=== PATIENT | female | born 1940 | race Caucasian/White ===

== ENCOUNTER 2021-04-21 15:48 | Inpatient (IN) | payer MEDICARE ==
[~2021-04-21] VITALS: Ht 165.1 cm; Wt 48.1 kg
--- NOTE | 2021-04-21 15:50 | NUR ---
BIB EMS FROM HOME, FALL ON TO LEFT HIP AFTER FEELING DIZZY. DENIES LOC AND DENIES HITTING HER HEAD. C/O LEFT HIP PAIN.
[2021-04-21] MEDS ORDERED: MORPHINE SULFATE 4 MG/ML, 1ML ONE ×3 (15:59→19:48)
[2021-04-21] MEDS ORDERED: SODIUM CHLORIDE FLUSH 10ML SYR IVF ONE (16:00)
[2021-04-21] MEDS: MORPHINE SULFATE 4 MG/ML, 1ML IVPush PRN ×2 (16:01→16:37)
--- NOTE | 2021-04-21 16:03 | NUR ---
PT MED NOTED FOR PAIN, 02 20NC PLACED. PT TO RADIOLOGY WITH TECH TRANSPORT
--- NOTE | 2021-04-21 16:26 | NUR ---
PT RTD FROM RADIOLOGY, ALL MONITORS IN PLACE. PAIN CONTINUES 03/11. PTS AT BEDSIDE.
[2021-04-21] MEDS ORDERED: PLEASE ENTER ALLERGIES MC SCH (16:30)
[2021-04-21] MEDS ORDERED: PLEASE ENTER HEIGHT AND WEIGHT MC SCH (16:30)
[2021-04-21 16:51] LABS: BASOPHILS % (AUTO) 1 % (0-1); EOSINOPHILS % (AUTO) 1 % (1-7); LYMPHOCYTES % (AUTO) 14 % (22-44); MEAN CORPUSCULAR HEMOGLOBIN 29.5 pg (27.0-34.8); MEAN PLATELET VOLUME 8.9 fL (7.4-10.4); MONOCYTES % (AUTO) 3 % (2-9); NEUTROPHILS % (AUTO) 81 % (42-75); PLATELET COUNT 207 x10^3/uL (130-400); RED CELL DISTRIBUTION WIDTH 15.5 % (9.6-15.2)
[2021-04-21 16:56] LABS: INTERNATIONAL NORMALIZED RATIO 1.81 (0.93-1.1); PROTHROMBIN TIME 18.8 Seconds (9.6-11.5)
[2021-04-21 16:58] LABS: ALANINE AMINOTRANSFERASE 10 U/L (12-78); ALBUMIN 3.7 g/dL (3.4-5.0); ANION GAP 7 mmol/L (5-15); CALCIUM 9.2 mg/dL (8.5-10.1); CHLORIDE 108 mmol/L (98-107)
[2021-04-21 17:02] LABS: ALKALINE PHOSPHATASE 73 U/L (45-117); BILIRUBIN,TOTAL 0.7 mg/dL (0.2-1.0); CREATININE 1.66 mg/dL (0.55-1.02); TROPONIN I < 0.015 ng/mL (0.000-0.045)
--- NOTE | 2021-04-21 17:14 | NUR ---
TEST RESULTED, CHART UP FOR RECHECK. PT APPEARS MORE COMFORTABLE, 02/08
[2021-04-21] MEDS ORDERED: CARB1TAB43 PO (18:29)
[2021-04-21] MEDS ORDERED: SOTA80TA8 PO (18:29)
[2021-04-21] MEDS ORDERED: LISI-167 PO (18:29)
[2021-04-21] MEDS ORDERED: LEVO50TA PO (18:29)
[2021-04-21] MEDS ORDERED: [UNRECOGNIZED DRUG - OTHER] PO (18:29)
[2021-04-21] MEDS ORDERED: ATOR-2 PO (18:29)
--- NOTE | 2021-04-21 19:00 | NUR ---
BLANCAAR RPT TO ISHAN FREEMAN
[2021-04-21] MEDS ORDERED: morphine SULFATE 10 MG/ML, 1ML IVPush ONE (20:00)
--- NOTE | 2021-04-21 20:50 | NUR ---
ATTEMPTED TO CALL REPORT 1 TIME TO [place]. RN UNABLE TO TAKE REPORT AT THIS TIME
[2021-04-21] MEDS ORDERED: LACTATED RINGERS 1,000 ML IV SCH (21:30)
[2021-04-21] MEDS ORDERED: POLYETHYLENE GLYCOL 17 GM PACKET PO PRN (21:30)
[2021-04-21] MEDS ORDERED: ONDANSETRON 2MG/ML, 2ML IVPush PRN (21:30)
[2021-04-21] MEDS ORDERED: OXYcodone IR 5MG TABLET PO PRN (21:30)
[2021-04-21] MEDS ORDERED: LABETALOL 5MG/ML, 20ML IVPush PRN (21:30)
[2021-04-21 21:48] VITALS: BP 184/100
[2021-04-21] MEDS: HYDROmorphone 2 MG/ML, 1ML IVPush PRN (21:57)
[2021-04-21 22:15] VITALS: BP 156/81
[2021-04-22] MEDS: MELATONIN 5 MG TABLET PO PRN (01:29)
[2021-04-22 02:15] VITALS: BP 150/73
[2021-04-22 06:36] LABS: BASOPHILS % (AUTO) 0 % (0-1); EOSINOPHILS % (AUTO) 0 % (1-7); LYMPHOCYTES % (AUTO) 8 % (22-44); MEAN CORPUSCULAR HEMOGLOBIN 29.7 pg (27.0-34.8); MEAN CORPUSCULAR HGB CONC 33.8 g/dL (32.4-35.8); MEAN PLATELET VOLUME 8.8 fL (7.4-10.4); MONOCYTES % (AUTO) 7 % (2-9); NEUTROPHILS % (AUTO) 85 % (42-75); PLATELET COUNT 184 x10^3/uL (130-400); RED BLOOD COUNT 4.09 x10^6/uL (3.82-5.3); RED CELL DISTRIBUTION WIDTH 15.3 % (9.6-15.2)
[2021-04-22 06:46] LABS: CALCIUM 8.4 mg/dL (8.5-10.1); CHLORIDE 107 mmol/L (98-107)
[2021-04-22 06:50] LABS: ANION GAP 4 mmol/L (5-15); CREATININE 1.48 mg/dL (0.55-1.02)
[2021-04-22] MEDS ORDERED: PHYTONADIONE 10 MG/ML, 1ML SQ ONE (08:00)
[2021-04-22 09:15] VITALS: BP 151/65
[2021-04-22 11:45] LABS: INTERNATIONAL NORMALIZED RATIO 2.33 (0.93-1.1); PROTHROMBIN TIME 23.9 Seconds (9.6-11.5)
[2021-04-22 12:06] VITALS: BP 134/67
[2021-04-22] MEDS ORDERED: SODIUM CHLORIDE 0.9% 250 ML IV ONE (14:30)
[2021-04-22] MEDS: CARBIDOPA/LEVODOPA CR 25 MG/100 MG TABLET PO SCH ×2 (16:52→23:24)
[2021-04-22] MEDS: HYDROmorphone 2 MG/ML, 1ML IVPush PRN (16:53)
[2021-04-22 22:50] VITALS: BP 128/71
[2021-04-22] MEDS: ATORVASTATIN 40 MG TABLET PO SCH (23:24)
[2021-04-22] MEDS: SOTALOL 80MG TABLET PO SCH (23:24)
[2021-04-22] MEDS: ACETAMINOPHEN 325 MG TABLET PO PRN (23:26)
[2021-04-23] VITALS (11 sets, daily range): BP systolic 106–161; BP diastolic 57–83
[2021-04-23] MEDS ORDERED: QUETIAPINE 25MG TABLET PO ONE (01:30)
[2021-04-23 05:49] LABS: BASOPHILS % (AUTO) 0 % (0-1); EOSINOPHILS % (AUTO) 0 % (1-7); LYMPHOCYTES % (AUTO) 12 % (22-44); MEAN CORPUSCULAR HEMOGLOBIN 29.6 pg (27.0-34.8); MEAN CORPUSCULAR HGB CONC 33.7 g/dL (32.4-35.8); MEAN PLATELET VOLUME 9.2 fL (7.4-10.4); MONOCYTES % (AUTO) 8 % (2-9); NEUTROPHILS % (AUTO) 80 % (42-75); PLATELET COUNT 164 x10^3/uL (130-400); RED BLOOD COUNT 3.86 x10^6/uL (3.82-5.3); RED CELL DISTRIBUTION WIDTH 15.4 % (9.6-15.2)
[2021-04-23 05:51] LABS: INTERNATIONAL NORMALIZED RATIO 1.54 (0.93-1.1); PROTHROMBIN TIME 16.1 Seconds (9.6-11.5)
[2021-04-23 05:54] LABS: ANION GAP 8 mmol/L (5-15); CALCIUM 8.8 mg/dL (8.5-10.1); CHLORIDE 107 mmol/L (98-107)
[2021-04-23 05:56] LABS: CREATININE 1.41 mg/dL (0.55-1.02)
[2021-04-23] MEDS: LEVOTHYROXINE 50 MCG TABLET PO SCH (06:00)
[2021-04-23] MEDS: CARBIDOPA/LEVODOPA CR 25 MG/100 MG TABLET PO SCH ×4 (06:00→23:36)
[2021-04-23] MEDS: SOTALOL 80MG TABLET PO SCH ×2 (09:00→23:37)
[2021-04-23] MEDS: LISINOPRIL 5 MG TABLET PO SCH (09:00)
[2021-04-23] MEDS ORDERED: GLYCOPYRROLATE 0.2MG/1ML, 5ML ONE (13:38)
[2021-04-23] MEDS ORDERED: CEFAZOLIN 1,000 MG ONE (13:38)
[2021-04-23] MEDS ORDERED: DEXAMETHASONE 4 MG/ML, 1ML ONE (13:38)
[2021-04-23] MEDS ORDERED: ONDANSETRON 2MG/ML, 2ML ONE (13:38)
[2021-04-23] MEDS ORDERED: PROPOFOL 10 MG/ML, 20ML ONE (13:38)
[2021-04-23] MEDS ORDERED: NEOSTIGMINE 1 MG/ML, 10ML ONE (13:38)
[2021-04-23] MEDS ORDERED: ROCURONIUM 10MG/ML,5ML ONE (13:38)
[2021-04-23] MEDS ORDERED: SUCCINYLCHOLINE 20 MG/ML, 10ML ONE (13:38)
[2021-04-23] MEDS ORDERED: FENTANYL PF 250 MCG/5ML ONE (13:39)
[2021-04-23] MEDS ORDERED: SODIUM CHLORIDE 0.9% 50 ML ONE (13:45)
[2021-04-23] MEDS ORDERED: TRANEXAMIC ACID 100 MG/ML, 10ML ONE ×2 (13:45)
[2021-04-23] MEDS ORDERED: KETOROLAC 60 MG/2 ML ONE (13:45)
[2021-04-23] MEDS ORDERED: EPINEPHRINE 1 MG/ML, 1ML ONE (13:45)
[2021-04-23] MEDS ORDERED: ROPIvacaine/PF 0.2%, 20 ML ONE (13:46)
[2021-04-23] MEDS ORDERED: CHLORHEXIDINE 15 ML UDC ONE (15:32)
[2021-04-23] MEDS ORDERED: FENTANYL PF 100 MCG/2ML IV PRN (16:30)
[2021-04-23] MEDS ORDERED: ONDANSETRON 2MG/ML, 2ML IVPush PRN (16:30)
[2021-04-23] MEDS ORDERED: MEPERIDINE/PF 25MG/0.5ML IVPush PRN (16:30)
[2021-04-23] MEDS ORDERED: OXYcodone 5 MG/5 ML ORAL.SOL UDC PO PRN (16:30)
[2021-04-23] MEDS ORDERED: PROMETHAZINE 25 MG/ML, 1ML IVPush PRN (16:30)
[2021-04-23] MEDS ORDERED: ACETAMINOPHEN 325 MG TABLET PO PRN (16:30)
[2021-04-23] MEDS ORDERED: HYDROcodone/APAP 7.5-325MG/15ML UDC PO PRN (16:30)
[2021-04-23] MEDS ORDERED: HYDROmorphone 1 MG/ML, 1ML INJ IVPush PRN (16:30)
[2021-04-23] MEDS ORDERED: CEFAZOLIN 1,000 MG IVPB SCH (17:30)
[2021-04-23] MEDS ORDERED: CEFAZOLIN PMX 1GM/50ML 50 ML IV SCH (17:30)
[2021-04-23] MEDS: ATORVASTATIN 40 MG TABLET PO SCH (23:36)
[2021-04-24] VITALS (8 sets, daily range): BP systolic 85–135; BP diastolic 53–89
[2021-04-24] MEDS: HYDROmorphone 2 MG/ML, 1ML IVPush PRN ×2 (05:53→06:11)
[2021-04-24 05:54] LABS: BASOPHILS % (AUTO) 0 % (0-1); EOSINOPHILS % (AUTO) 0 % (1-7); LYMPHOCYTES % (AUTO) 11 % (22-44); MEAN CORPUSCULAR HEMOGLOBIN 29.1 pg (27.0-34.8); MEAN PLATELET VOLUME 9.3 fL (7.4-10.4); MONOCYTES % (AUTO) 7 % (2-9); NEUTROPHILS % (AUTO) 82 % (42-75); PLATELET COUNT 174 x10^3/uL (130-400); RED BLOOD COUNT 3.99 x10^6/uL (3.82-5.3); RED CELL DISTRIBUTION WIDTH 15.5 % (9.6-15.2)
[2021-04-24] MEDS: LEVOTHYROXINE 50 MCG TABLET PO SCH (05:54)
[2021-04-24] MEDS: CARBIDOPA/LEVODOPA CR 25 MG/100 MG TABLET PO SCH ×4 (05:54→20:45)
[2021-04-24 07:37] LABS: ALANINE AMINOTRANSFERASE 9 U/L (12-78); ALBUMIN 3.2 g/dL (3.4-5.0); ANION GAP 11 mmol/L (5-15); CALCIUM 8.9 mg/dL (8.5-10.1); CHLORIDE 106 mmol/L (98-107)
[2021-04-24 07:40] LABS: ALKALINE PHOSPHATASE 59 U/L (45-117); BILIRUBIN,TOTAL 1.4 mg/dL (0.2-1.0); CREATININE 1.49 mg/dL (0.55-1.02); TOTAL PROTEIN 6.9 g/dL (6.4-8.2)
[2021-04-24] MEDS ORDERED: SODIUM CHLORIDE 0.9%, 500ML IVBOLUS ONE ×4 (08:00→16:00)
[2021-04-24] MEDS: CEFAZOLIN PMX 1GM/50ML 50 ML IV SCH ×2 (09:10)
[2021-04-24] MEDS: LISINOPRIL 5 MG TABLET PO SCH (09:28)
[2021-04-24] MEDS: SOTALOL 80MG TABLET PO SCH ×2 (09:28→20:27)
[2021-04-24] MEDS: HEPARIN 5,000 UNITS/ML, 1ML SQ SCH ×2 (13:22→20:29)
[2021-04-24] MEDS: ATORVASTATIN 40 MG TABLET PO SCH (20:29)
[2021-04-25 00:13] VITALS: BP 100/58
[2021-04-25] MEDS: CARBIDOPA/LEVODOPA CR 25 MG/100 MG TABLET PO SCH ×4 (05:30→20:33)
[2021-04-25] MEDS: HEPARIN 5,000 UNITS/ML, 1ML SQ SCH (05:30)
[2021-04-25] MEDS: LEVOTHYROXINE 50 MCG TABLET PO SCH (05:31)
[2021-04-25 05:37] LABS: BASOPHILS % (AUTO) 0 % (0-1); EOSINOPHILS % (AUTO) 0 % (1-7); LYMPHOCYTES % (AUTO) 16 % (22-44); MEAN CORPUSCULAR HEMOGLOBIN 29.9 pg (27.0-34.8); MEAN PLATELET VOLUME 9.2 fL (7.4-10.4); MONOCYTES % (AUTO) 11 % (2-9); NEUTROPHILS % (AUTO) 72 % (42-75); PLATELET COUNT 162 x10^3/uL (130-400); RED CELL DISTRIBUTION WIDTH 15.2 % (9.6-15.2)
[2021-04-25 05:41] LABS: ALANINE AMINOTRANSFERASE 7 U/L (12-78); ALBUMIN 2.1 g/dL (3.4-5.0); ANION GAP 7 mmol/L (5-15); CHLORIDE 104 mmol/L (98-107)
[2021-04-25 05:52] LABS: ALKALINE PHOSPHATASE 49 U/L (45-117); BILIRUBIN,TOTAL 1.2 mg/dL (0.2-1.0); CREATININE 1.44 mg/dL (0.55-1.02); TOTAL PROTEIN 5.2 g/dL (6.4-8.2)
[2021-04-25 07:29] VITALS: BP 110/75
[2021-04-25] MEDS: SOTALOL 80MG TABLET PO SCH ×2 (09:27→20:33)
[2021-04-25] MEDS: LISINOPRIL 5 MG TABLET PO SCH (09:51)
[2021-04-25] MEDS: ENOXAPARIN 30 MG/0.3 ML SQ SCH (11:19)
[2021-04-25] MEDS ORDERED: PHARMACY MAY ADJ FOR RENAL FX MC PRN (11:30)
[2021-04-25 15:15] VITALS: BP 95/57
[2021-04-25 19:59] VITALS: BP 97/64
[2021-04-25] MEDS: ATORVASTATIN 40 MG TABLET PO SCH (20:33)
[2021-04-26 00:32] VITALS: BP 102/60
[2021-04-26 05:56] LABS: BASOPHILS % (AUTO) 0 % (0-1); EOSINOPHILS % (AUTO) 1 % (1-7); LYMPHOCYTES % (AUTO) 24 % (22-44); MEAN CORPUSCULAR HEMOGLOBIN 29.9 pg (27.0-34.8); MEAN CORPUSCULAR HGB CONC 34.2 g/dL (32.4-35.8); MEAN PLATELET VOLUME 9.1 fL (7.4-10.4); MONOCYTES % (AUTO) 14 % (2-9); NEUTROPHILS % (AUTO) 61 % (42-75); PLATELET COUNT 176 x10^3/uL (130-400); RED BLOOD COUNT 3.23 x10^6/uL (3.82-5.3); RED CELL DISTRIBUTION WIDTH 15.1 % (9.6-15.2)
[2021-04-26 06:01] LABS: ANION GAP 8 mmol/L (5-15); CALCIUM 7.9 mg/dL (8.5-10.1); CHLORIDE 109 mmol/L (98-107); CREATININE 1.23 mg/dL (0.55-1.02)
[2021-04-26] MEDS: CARBIDOPA/LEVODOPA CR 25 MG/100 MG TABLET PO SCH ×4 (06:11→20:59)
[2021-04-26] MEDS: LEVOTHYROXINE 50 MCG TABLET PO SCH (06:12)
[2021-04-26 08:14] VITALS: BP 111/74
[2021-04-26] MEDS: SOTALOL 80MG TABLET PO SCH ×2 (08:44→20:58)
[2021-04-26] MEDS: LISINOPRIL 5 MG TABLET PO SCH (08:44)
[2021-04-26] MEDS: ENOXAPARIN 30 MG/0.3 ML SQ SCH (11:43)
[2021-04-26 13:08] VITALS: BP 92/65
[2021-04-26] MEDS ORDERED: OXYC5TAB98 PO (14:54)
[2021-04-26] MEDS ORDERED: WARF-36 PO (14:56)
[2021-04-26 15:59] LABS: INTERNATIONAL NORMALIZED RATIO 1.01 (0.93-1.1); PROTHROMBIN TIME 10.8 Seconds (9.6-11.5)
[2021-04-26] MEDS: WARFARIN 5 MG TABLET PO-COUM SCH (17:47)
[2021-04-26 20:52] VITALS: BP 118/77
[2021-04-26] MEDS: MELATONIN 5 MG TABLET PO PRN (20:59)
[2021-04-26] MEDS: ATORVASTATIN 40 MG TABLET PO SCH (20:59)
[2021-04-26] MEDS ORDERED: SODIUM CHLORIDE 0.9%, 250ML IVBOLUS ONE (21:30)
[2021-04-26 22:42] VITALS: BP 123/84
[2021-04-26 23:16] LABS: BASOPHILS % (AUTO) 1 % (0-1); EOSINOPHILS % (AUTO) 2 % (1-7); LYMPHOCYTES % (AUTO) 21 % (22-44); MEAN CORPUSCULAR HEMOGLOBIN 30.3 pg (27.0-34.8); MEAN CORPUSCULAR HGB CONC 34.4 g/dL (32.4-35.8); MEAN PLATELET VOLUME 8.9 fL (7.4-10.4); MONOCYTES % (AUTO) 13 % (2-9); NEUTROPHILS % (AUTO) 64 % (42-75); PLATELET COUNT 198 x10^3/uL (130-400); RED BLOOD COUNT 3.48 x10^6/uL (3.82-5.3); RED CELL DISTRIBUTION WIDTH 15.1 % (9.6-15.2)
[2021-04-26 23:27] LABS: ANION GAP 6 mmol/L (5-15); CALCIUM 8.6 mg/dL (8.5-10.1); CHLORIDE 107 mmol/L (98-107); CREATININE 1.35 mg/dL (0.55-1.02)
[2021-04-26 23:29] LABS: INTERNATIONAL NORMALIZED RATIO 0.96 (0.93-1.1); PROTHROMBIN TIME 10.3 Seconds (9.6-11.5)
[2021-04-27 01:50] VITALS: BP 104/71
[2021-04-27] MEDS: CARBIDOPA/LEVODOPA CR 25 MG/100 MG TABLET PO SCH ×4 (05:07→21:29)
[2021-04-27] MEDS: LEVOTHYROXINE 50 MCG TABLET PO SCH (05:07)
[2021-04-27 06:20] VITALS: BP 117/80
[2021-04-27] MEDS: SOTALOL 80MG TABLET PO SCH ×2 (09:16→21:29)
[2021-04-27] MEDS: LISINOPRIL 5 MG TABLET PO SCH (09:16)
[2021-04-27] MEDS ORDERED: ENOXAPARIN 40 MG/0.4 ML SQ SCH (11:30)
[2021-04-27] MEDS: ACETAMINOPHEN 325 MG TABLET PO PRN (11:58)
[2021-04-27 12:36] VITALS: BP 110/74
[2021-04-27] MEDS: WARFARIN 5 MG TABLET PO-COUM SCH (18:45)
[2021-04-27 19:34] VITALS: BP 111/72
[2021-04-27] MEDS: ATORVASTATIN 40 MG TABLET PO SCH (21:29)
[2021-04-27] MEDS: MELATONIN 5 MG TABLET PO PRN (21:30)
[2021-04-28 01:09] VITALS: BP 95/69
[2021-04-28] MEDS: CARBIDOPA/LEVODOPA CR 25 MG/100 MG TABLET PO SCH ×2 (05:33→11:57)
[2021-04-28] MEDS: LEVOTHYROXINE 50 MCG TABLET PO SCH (05:33)
[2021-04-28 05:40] LABS: INTERNATIONAL NORMALIZED RATIO 1.01 (0.93-1.1); PROTHROMBIN TIME 10.8 Seconds (9.6-11.5)
[2021-04-28 05:46] LABS: CHLORIDE 108 mmol/L (98-107)
[2021-04-28 05:50] LABS: ANION GAP 4 mmol/L (5-15); CALCIUM 8.4 mg/dL (8.5-10.1); CREATININE 1.14 mg/dL (0.55-1.02)
[2021-04-28 06:41] VITALS: BP 117/71
[2021-04-28] MEDS: ACETAMINOPHEN 325 MG TABLET PO PRN (09:16)
[2021-04-28] MEDS: LISINOPRIL 5 MG TABLET PO SCH (09:17)
[2021-04-28] MEDS: SOTALOL 80MG TABLET PO SCH (09:17)
== END 2021-04-28 12:40 | disposition home health service (06) | DRG 521 ==
LOC: ED 18:25 → EDIP 19:12 → 3N 21:46 → 4NE 04-23 19:44 → 5SO 04-24 12:48 → 4NE 04-26 18:42 → 5SO 04-26 22:35
PROVIDERS: ADMIT Internal Medicine; ATTEND Family Medicine
PROC: 30233K1 Transfusion of Nonautologous Frozen Plasma into Peripheral Vein, Percutaneous Approach (ICD-10-PCS; 2021-04-23)
PROC: 0SRS0J9 Replacement of Left Hip Joint, Femoral Surface with Synthetic Substitute, Cemented, Open Approach (ICD-10-PCS; principal; 2021-04-23 16:30)
DX: S72.042A Displaced fracture of base of neck of left femur, initial encounter for closed fracture (principal); N17.0 Acute kidney failure with tubular necrosis; E87.1 Hypo-osmolality and hyponatremia; D68.69 Other thrombophilia; I13.0 Hypertensive heart and chronic kidney disease with heart failure and stage 1 through stage 4 chronic kidney disease, or unspecified chronic kidney disease; I42.9 Cardiomyopathy, unspecified; I50.42 Chronic combined systolic (congestive) and diastolic (congestive) heart failure; Z20.822 Contact with and (suspected) exposure to COVID-19; E03.9 Hypothyroidism, unspecified; E78.5 Hyperlipidemia, unspecified; F17.210 Nicotine dependence, cigarettes, uncomplicated; F19.10 Other psychoactive substance abuse, uncomplicated; G20 Parkinson's disease; R73.9 Hyperglycemia, unspecified; I08.0 Rheumatic disorders of both mitral and aortic valves; I48.0 Paroxysmal atrial fibrillation; W18.39XA Other fall on same level, initial encounter; I49.5 Sick sinus syndrome; N18.30 Chronic kidney disease, stage 3 unspecified; T45.515A Adverse effect of anticoagulants, initial encounter; Z96.652 Presence of left artificial knee joint; Z79.01 Long term (current) use of anticoagulants; Z79.899 Other long term (current) drug therapy; Z85.3 Personal history of malignant neoplasm of breast; Z86.73 Personal history of transient ischemic attack (TIA), and cerebral infarction without residual deficits; Z90.12 Acquired absence of left breast and nipple; Z91.81 History of falling; Z95.0 Presence of cardiac pacemaker; Y93.89 Activity, other specified; Y92.098 Other place in other non-institutional residence as the place of occurrence of the external cause; Y99.8 Other external cause status; Z88.0 Allergy status to penicillin; Z88.2 Allergy status to sulfonamides; Z88.1 Allergy status to other antibiotic agents; Z88.8 Allergy status to other drugs, medicaments and biological substances; Z92.21 Personal history of antineoplastic chemotherapy; Z92.3 Personal history of irradiation
CPT/HCPCS: 36415; 71045; 72190; 80048; 80053; 83605; 83735; 84145; 84443; 84484; 85014; 85018; 85025; 85610; 86850; 86900; 87635; 93005; 96374; 96375; 99285; C1713; G0378; J0171; J0690; J1100; J1170; J1644; J1650; J1885; J2405; J2704; J2710; J2795; J3010; J3430; C1762; C1776; J0330; J2270; J7040; J7050; J7120; P9017